=== PATIENT | female | born 1970 | race Caucasian/White ===

== ENCOUNTER → 2019-03-23 | Outpatient (CLI) | payer OTHER ==
[~2019-03-23] MED LIST: Iron PO
[2019-03-23 12:40] LABS: MICROSCOPIC AUTO
[2019-03-23 12:43] LABS: MEAN CORPUSCULAR HEMOGLOBIN 23.5 pg (27.0-34.8); MEAN CORPUSCULAR VOLUME 75.6 fL (80-100); MEAN PLATELET VOLUME 8.9 fL (7.4-10.4); PLATELET COUNT 326 x10^3/uL (130-400); RED BLOOD COUNT 4.94 x10^6/uL (3.82-5.3); RED CELL DISTRIBUTION WIDTH 24.2 % (9.6-15.2)
[2019-03-23 12:45] LABS: CULTURE INDICATED? NO
[2019-03-23 12:56] LABS: ALANINE AMINOTRANSFERASE 15 U/L (12-78); ALBUMIN 3.9 g/dL (3.4-5.0); ANION GAP 8 mmol/L (5-15); CALCIUM 8.7 mg/dL (8.5-10.1); CHLORIDE 104 mmol/L (98-107); CREATININE 0.82 mg/dL (0.55-1.02)
[2019-03-23 13:01] LABS: ALKALINE PHOSPHATASE 58 U/L (45-117); BILIRUBIN,TOTAL 0.4 mg/dL (0.2-1.0)
[2019-03-23 13:11] LABS: BASOPHILS # (AUTO) 0.02 x10^3/uL (0-0.1); BASOPHILS % (AUTO) 0 % (0-1); EOSINOPHILS # (AUTO) 0.09 x10^3/uL (0-0.4); EOSINOPHILS % (AUTO) 2 % (1-7); LYMPHOCYTES # (AUTO) 1.71 x10^3/uL (1-3.4); LYMPHOCYTES % (AUTO) 39 % (22-44); MD MORPH REVIEW ONLY; MONOCYTES # (AUTO) 0.44 x10^3/uL (0.2-0.8); MONOCYTES % (AUTO) 10 % (2-9); NEUTROPHILS # (AUTO) 2.12 x10^3/uL (1.8-6.8); NEUTROPHILS % (AUTO) 48 % (42-75)
[2019-03-23 13:13] LABS: <PLATELET ESTIMATE> ADEQUATE; <PLT MORPHOLOGY> NORMAL PLT MORPH; ANISOCYTOSIS 1+; MICROCYTOSIS 1+; OVALOCYTES 1+
== END | disposition home or self-care (01) ==
LOC: STAR 11:16
PROVIDERS: ATTEND Obstetrics & Gynecology
DX: Z01.818 Encounter for other preprocedural examination (principal); D25.9 Leiomyoma of uterus, unspecified; N92.0 Excessive and frequent menstruation with regular cycle; D64.9 Anemia, unspecified
CPT/HCPCS: 36415; 80053; 81001; 84702; 85025

== ENCOUNTER 2019-04-01 07:01 | Day surgery (SDC) | payer OTHER ==
[~2019-04-01] VITALS: Ht 157.5 cm; Wt 56.9 kg
[2019-04-01] MEDS ORDERED: LACTATED RINGERS 1,000 ML IV SCH (07:25)
[2019-04-01] MEDS ORDERED: GABAPENTIN 300 MG CAPSULE PO ONE (07:30)
[2019-04-01] MEDS ORDERED: ACETAMINOPHEN 500 MG TABLET PO ONE (07:30)
[2019-04-01 07:38] LABS: HCG UR SG 1.006 (1.003-1.030)
[2019-04-01 07:53] VITALS: BP 123/83
[2019-04-01] MEDS ORDERED: SCOPOLAMINE PATCH, 1.5MG PATCH.TD72 TD ONE (09:17)
[2019-04-01] MEDS ORDERED: BUPIVACAINE/PF 0.25% ONE (09:26)
[2019-04-01] MEDS ORDERED: EPINEPHRINE 1 MG/ML, 1ML ONE (09:26)
[2019-04-01] MEDS ORDERED: THROMBIN 5,000 UNIT VIAL TP ONE (09:26)
[2019-04-01] MEDS ORDERED: FLUORESCEIN SODIUM 500 MG/5 ML ONE (09:26)
[2019-04-01] MEDS ORDERED: NEOMY/POLYMYXIN B GU IRR. 1 ML ONE (09:27)
[2019-04-01] MEDS ORDERED: FENTANYL PF 250 MCG/5ML ONE (09:28)
[2019-04-01] MEDS ORDERED: MIDAZOLAM 1 MG/ML, 2ML ONE (09:28)
[2019-04-01] MEDS ORDERED: ROCURONIUM 10MG/ML,5ML ONE (09:29)
[2019-04-01] MEDS ORDERED: PROPOFOL 50 ML ONE (09:53)
[2019-04-01] MEDS ORDERED: HALOPERIDOL 5 MG/ML IV PRN (11:30)
[2019-04-01] MEDS ORDERED: PROMETHAZINE 25 MG/ML, 1ML IV PRN (11:30)
[2019-04-01] MEDS ORDERED: hydrALAzine 20 MG/ML, 1ML IV PRN (11:30)
[2019-04-01] MEDS ORDERED: FENTANYL PF 100 MCG/2ML IV PRN (11:30)
[2019-04-01] MEDS ORDERED: MEPERIDINE/PF 25MG/0.5ML IVPush PRN (11:30)
[2019-04-01] MEDS ORDERED: HYDROmorphone 2 MG/ML, 1ML IVPush PRN (11:30)
[2019-04-01] MEDS ORDERED: FENTANYL PF 100 MCG/2ML ONE (12:08)
[2019-04-01] MEDS ORDERED: OXYcodone 5 MG/5 ML ORAL.SOL UDC ONE ×2 (12:08→12:11)
[2019-04-01] MEDS: OXYcodone 5 MG/5 ML ORAL.SOL UDC PO PRN ×2 (12:09→12:16)
[2019-04-01] MEDS ORDERED: MEPERIDINE/PF 25MG/ML,1ML ONE (12:11)
[2019-04-01] MEDS ORDERED: PROPOFOL 10 MG/ML, 20ML ONE (14:59)
[2019-04-01] MEDS ORDERED: CEFOTETAN 2 GM ONE (14:59)
[2019-04-01] MEDS ORDERED: ONDANSETRON 2MG/ML, 2ML ONE (14:59)
[2019-04-01] MEDS ORDERED: DEXAMETHASONE 4 MG/ML, 1ML ONE (14:59)
[2019-04-01] MEDS ORDERED: PHENYLEPHRINE 10 MG/ML ONE (14:59)
[2019-04-01] MEDS ORDERED: SUGAMMADEX 200 MG/2 ML IVPush ONE (14:59)
== END 2019-04-01 17:30 | disposition home or self-care (01) ==
LOC: OUT 07:01
PROVIDERS: ATTEND Obstetrics & Gynecology
DX: D25.9 Leiomyoma of uterus, unspecified (principal); N83.8 Other noninflammatory disorders of ovary, fallopian tube and broad ligament; N39.3 Stress incontinence (female) (male); D50.0 Iron deficiency anemia secondary to blood loss (chronic); Z98.51 Tubal ligation status; Z79.899 Other long term (current) drug therapy; Z82.3 Family history of stroke; Z80.0 Family history of malignant neoplasm of digestive organs; Z82.49 Family history of ischemic heart disease and other diseases of the circulatory system
CPT/HCPCS: 57288; 58552; 81025; 88307; C1771; J0171; J1100; J2175; J2250; J2370; J2405; J2704; J3010; J3490; J7120

== ENCOUNTER → 2020-12-18 | Outpatient (CLI) | payer OTHER | END | disposition home or self-care (01) | LOC: CFH 14:43 | PROVIDERS: ATTEND Obstetrics & Gynecology | DX: Z12.31 Encounter for screening mammogram for malignant neoplasm of breast (principal); Z12.39 Encounter for other screening for malignant neoplasm of breast | CPT/HCPCS: 76641; 77063; 77067 ==